=== PATIENT | female | born 2000 | race Hispanic/Latino ===

== ENCOUNTER 2023-05-16 18:26 | Inpatient (IN) | payer OTHER ==
[~2023-05-16 18:26] MED LIST: Bupivacaine 0.25% HCL 30 ML VIAL ONE; Lidocaine 2% MPF 10 ML AMP (For Epidural Use) ONE; ePHEDrine Sulfate 50 MG/10 ML VIAL ONE
[2023-05-16 18:59] VITALS: BMI 28.5
[2023-05-16] MEDS ORDERED: hydrALAZINE 20 MG/ML VIAL SLOW IVP PRN ×2 (19:20→21:22)
[2023-05-16] MEDS ORDERED: Fluconazole 100 MG TAB PO SCH ×2 (20:15→20:30)
[2023-05-16] MEDS ORDERED: Fluconazole 100 MG TAB PO ONE (20:15)
[2023-05-16 20:34] LABS: Fetal Membranes Rupture RUPTURE DETECTED (No Rupture)
[2023-05-16] MEDS ORDERED: Methylergonovine 0.2 MG/ML VIAL IM PRN (21:22)
[2023-05-16] MEDS ORDERED: Misoprostol 200 MCG TAB PR PRN (21:22)
[2023-05-16] MEDS ORDERED: Promethazine HCl 25 MG/ML VIAL IM PRN (21:22)
[2023-05-16] MEDS ORDERED: Carboprost 250 MCG/ML AMP IM PRN (21:22)
[2023-05-16] MEDS ORDERED: Diphenoxylate HCl/Atropine Tablet PO PRN (21:22)
[2023-05-16] MEDS ORDERED: Tranexamic Acid 1,000 MG/10 ML VIAL IVP PRN (21:22)
[2023-05-16] MEDS ORDERED: Ondansetron PF 4 MG/2 ML Vial IVP PRN (21:22)
[2023-05-16] MEDS ORDERED: Lidocaine 1% (PF) 30 ML VIAL SC PRN (21:22)
[2023-05-16] MEDS ORDERED: Penicillin G Potassium 5 MILL.UNITS in Sodium Chloride 0.9% 100 ML IVPB SCH (21:30)
[2023-05-16] MEDS ORDERED: Oxytocin 30 units/NS 500 ML 500 ML IV SCH ×2 (21:30)
[2023-05-16 21:57] LABS: Hematocrit 38.7 % (34.9-44.5); Mean Corpuscular HGB CONC 33.6 g/dL (32.0-36.0); Mean Corpuscular Hemoglobin 29.5 pg (27.0-33.0); Mean Platelet Volume 12.4 fl (7.4-10.4); Platelet Count 168 10x3/uL (150-450); RBC Distribution Width 13.8 % (11.5-14.5); White Blood Cell (WBC) Count 11.1 10x3/uL (3.5-10.5)
[2023-05-16 22:26] LABS: HBSAg Index 0.12 S/CO (0-0.99); Hep B Surf Ag - L&D Non-Reactive S/CO (NonReactive)
[2023-05-16 22:27] LABS: Syphilis Antibody Nonreactive (Nonreactive); Syphilis Antibody Index 0.03 S/CO (<1.00 Non-Reactive)
[2023-05-16] MEDS ORDERED: fentaNYL/Ropivacaine Epidural 100 ML ONE (23:30)
[2023-05-17] MEDS ORDERED: Moisturizing Cream (Eucerin) 113 GM JAR TOP PRN ×2 (00:08→16:26)
[2023-05-17] MEDS ORDERED: Ondansetron PF 4 MG/2 ML Vial IVP PRN ×5 (00:08→23:28)
[2023-05-17] MEDS ORDERED: Naloxone HCl 0.4 mg/ml Vial IVP PRN ×4 (00:08→16:26)
[2023-05-17] MEDS ORDERED: ePHEDrine Sulfate 50 MG/10 ML VIAL SLOW IVP PRN (00:08)
[2023-05-17] MEDS ORDERED: diphenhydrAMINE 50 MG/ML VIAL IVP PRN ×3 (00:08→16:26)
[2023-05-17] MEDS ORDERED: Promethazine HCl 25 MG/ML VIAL IM PRN ×4 (00:08→23:28)
[2023-05-17] MEDS ORDERED: Lactated Ringer's 500 ML IV PRN (00:08)
[2023-05-17] MEDS ORDERED: Acetaminophen 325 MG TAB PO PRN ×2 (00:08→23:28)
[2023-05-17] MEDS ORDERED: fentaNYL 2 mcg/Ropivacaine 0.2% Epidural 100 ML CADD EPIDURAL SCH (00:15)
[2023-05-17] MEDS ORDERED: Communication Order-Pharmacy FS SCH ×3 (00:15→16:30)
[2023-05-17] MEDS ORDERED: Penicillin G 2.5 MILL.units 2.5 MILL.UNITS in Premix 1 BAG IVPB SCH (01:30)
[2023-05-17 09:40] LABS: Chlamydia by PCR, Vaginal Swab Not Detected (NotDetected); GC by PCR, Vaginal Swab Not Detected (NotDetected)
[2023-05-17] MEDS ORDERED: Bicitra 30 ML UDCUP PO PRN (13:51)
[2023-05-17] MEDS ORDERED: Famotidine/PF 20 mg/2ml Vial SLOW IVP PRN (13:51)
[2023-05-17] MEDS ORDERED: Azithromycin 500 MG in Sodium Chloride 0.9% 250 ML 250 ML IVPB SCH (14:00)
[2023-05-17] MEDS ORDERED: CEFAZOLIN 2 GM in Sodium Chloride 0.9% 100 ML IVPB SCH (14:00)
[2023-05-17] MEDS ORDERED: Morphine PF 10 MG/10 ML VIAL ONE (14:19)
[2023-05-17] MEDS ORDERED: Dexamethasone 4 mg/ml Vial ONE (14:19)
[2023-05-17] MEDS ORDERED: Ondansetron PF 4 MG/2 ML Vial ONE (14:19)
[2023-05-17] MEDS ORDERED: Oxytocin 10 UNITS/ML VIAL ONE (14:19)
[2023-05-17] MEDS ORDERED: PHENYLEPHRINE-NS 100 MCG/ML 10 ML SYRINGE ONE ×2 (14:27→15:01)
[2023-05-17] MEDS ORDERED: KETAMINE 100 MG/ML (5ML VIAL) ONE (14:54)
[2023-05-17] MEDS ORDERED: Midazolam HCl 2 mg/2 ml Vial ONE (14:54)
[2023-05-17] MEDS ORDERED: Tranexamic Acid 1,000 MG/10 ML VIAL ONE (14:56)
[2023-05-17] MEDS ORDERED: Methylergonovine 0.2 MG/ML VIAL ONE (15:01)
[2023-05-17 15:07] LABS: RapidComm Collect By OR NURSE; pH (Cord, venous) 7.329 (7.250-7.350)
[2023-05-17 15:08] LABS: RapidComm Collect By OR NURSE
[2023-05-17] MEDS ORDERED: GENTAMICIN IVPB SCH (16:15)
[2023-05-17] MEDS ORDERED: SODIUM CHLORIDE 0.9% IVPB SCH (16:15)
[2023-05-17] MEDS ORDERED: Meperidine HCl/PF 25 MG/ML VIAL SLOW IVP PRN (16:26)
[2023-05-17] MEDS ORDERED: FENTANYL 500 MCG/10 ML VIAL 1,000 MCG in Sodium Chloride 0.9% 30 ML IV PRN (16:26)
[2023-05-17] MEDS ORDERED: Morphine 4 MG/ML VIAL SLOW IVP PRN (16:26)
[2023-05-17] MEDS ORDERED: fentaNYL 50 mcg/mL 1 mL Vial SLOW IVP PRN (16:26)
[2023-05-17] MEDS ORDERED: Promethazine HCl 25 MG SUPP PR PRN (16:26)
[2023-05-17] MEDS ORDERED: Naloxone HCl 0.4 mg/ml Vial IV PRN ×2 (16:26)
[2023-05-17] MEDS ORDERED: diphenhydrAMINE 50 MG/ML VIAL IM PRN (16:26)
[2023-05-17] MEDS ORDERED: diphenhydrAMINE 25 MG CAP PO PRN (16:26)
[2023-05-17] MEDS ORDERED: Ketorolac Tromethamine 30 MG/ML VIAL IVP SCH (16:30)
[2023-05-17 16:42] LABS: D-Dimer Test 3.37 mg/L FEU (0.19-0.50); INR-International Normal Ratio 4.6; PTT 84.8 sec (22.0-33.0); Prothrombin Time 47.9 sec (9.5-12.1)
[2023-05-17 17:05] LABS: Hematocrit 38.1 % (34.9-44.5); Hemoglobin 12.9 g/dL (12.0-15.5)
[2023-05-17] MEDS: Gentamicin Sulfate 320 MG in Sodium Chloride 0.9% 100 ML IVPB SCH (18:25)
[2023-05-17] MEDS: Ampicillin 2 GM in Sodium Chloride 0.9% 100 ML IVPB SCH (18:25)
[2023-05-17 20:33] LABS: #Neutrophils 19.1 10x3/uL (1.5-8.4); %Basophils 0.1 % (0.0-2.0); %Eosinophils 0.1 % (0.0-6.0); %Monocytes 4.9 % (0.0-10.0); %Neutrophils 90.3 % (40.0-75.0); Hematocrit 33.3 % (34.9-44.5); Hemoglobin 11.4 g/dL (12.0-15.5); Mean Corpuscular HGB CONC 34.2 g/dL (32.0-36.0); Mean Corpuscular Hemoglobin 30.7 pg (27.0-33.0); Mean Corpuscular Volume 89.8 fl (81.6-98.3); Mean Platelet Volume 12.4 fl (7.4-10.4); Platelet Count 139 10x3/uL (150-450); RBC Distribution Width 13.7 % (11.5-14.5); Red Blood Cell (RBC) Count 3.71 10x6/uL (3.90-5.03); White Blood Cell (WBC) Count 21.1 10x3/uL (3.5-10.5)
[2023-05-17 20:51] LABS: D-Dimer Test 2.62 mg/L FEU (0.19-0.50); INR-International Normal Ratio 0.9; PTT 32.5 sec (22.0-33.0); Prothrombin Time 9.8 sec (9.5-12.1)
[2023-05-17 21:01] LABS: ALT (SGPT) 10 U/L (8-55); AST (SGOT) 17 U/L (5-34); Albumin 2.9 g/dL (3.5-5.0); Alkaline Phosphatase 177 U/L (40-100); Anion Gap 13 mmol/L (10-20); BUN (Urea Nitrogen) 6 mg/dL (7.0-18.7); Bilirubin, Total 1.9 mg/dL (0.2-1.2); CRP (Inflammatory) 6.98 mg/dL (= or < 0.5); Calc. Creatinine Clearance 151 mL/min (70-130); Calcium 8.7 mg/dL (7.8-10.44); Carbon Dioxide 20 mmol/L (22-29); Chloride 110 mmol/L (98-107); Estimated GFR 132; Globulin 2.5 g/dL (2.4-3.5); Glucose 111 mg/dL (70-105); Potassium 4.2 mmol/L (3.5-5.1); Protein, Total 5.4 g/dL (6.0-8.3); Sodium 139 mmol/L (136-145)
[2023-05-17] MEDS: Clindamycin/D5W 900 MG in Premix 1 BAG IVPB SCH (22:26)
[2023-05-17] MEDS ORDERED: Bisacodyl 10 MG SUPP PR PRN (23:28)
[2023-05-17] MEDS ORDERED: Misoprostol 200 MCG TAB PR PRN (23:28)
[2023-05-17] MEDS ORDERED: hydrALAZINE 20 MG/ML VIAL SLOW IVP PRN (23:28)
[2023-05-17] MEDS ORDERED: Lanolin Ointment 7 GM TUBE TOP PRN (23:28)
[2023-05-17] MEDS ORDERED: Ferrous Sulfate 325 MG TAB PO SCH (23:45)
[2023-05-17] MEDS ORDERED: Docusate 100 MG CAP PO SCH (23:45)
[2023-05-18] MEDS: Ampicillin 2 GM in Sodium Chloride 0.9% 100 ML IVPB SCH ×4 (00:25→18:49)
[2023-05-18] MEDS: Ketorolac Tromethamine 30 MG/ML VIAL IVP PRN ×2 (00:26→06:10)
[2023-05-18] MEDS ORDERED: HYDROcodone/Acetaminophen 5/325 mg Tablet PO PRN (04:30)
[2023-05-18] MEDS: Clindamycin/D5W 900 MG in Premix 1 BAG IVPB SCH ×3 (06:10→21:36)
[2023-05-18 06:49] LABS: #Basophils 0.1 10x3/uL (0.0-0.2); #Eosinphils 0.1 10x3/uL (0.0-0.5); #Monocytes 1.4 10x3/uL (0.0-1.1); #Neutrophils 13.6 10x3/uL (1.5-8.4); %Basophils 0.3 % (0.0-2.0); %Eosinophils 0.3 % (0.0-6.0); %Lymphocytes 7.1 % (18.0-47.0); %Monocytes 8.7 % (0.0-10.0); Hematocrit 26.2 % (34.9-44.5); Hemoglobin 8.9 g/dL (12.0-15.5); Mean Corpuscular Hemoglobin 30.4 pg (27.0-33.0); Mean Corpuscular Volume 89.4 fl (81.6-98.3); Mean Platelet Volume 12.4 fl (7.4-10.4); Platelet Count 126 10x3/uL (150-450); RBC Distribution Width 13.7 % (11.5-14.5); Red Blood Cell (RBC) Count 2.93 10x6/uL (3.90-5.03); White Blood Cell (WBC) Count 15.9 10x3/uL (3.5-10.5)
[2023-05-18 09:06] LABS: Anion Gap 10 mmol/L (10-20); BUN (Urea Nitrogen) 7 mg/dL (7.0-18.7); Calc. Creatinine Clearance 144 mL/min (70-130); Calcium 8.2 mg/dL (7.8-10.44); Carbon Dioxide 24 mmol/L (22-29); Chloride 106 mmol/L (98-107); Estimated GFR 130; Glucose 104 mg/dL (70-105); Potassium 3.9 mmol/L (3.5-5.1); Sodium 136 mmol/L (136-145)
[2023-05-18 09:10] LABS: D-Dimer Test 1.82 mg/L FEU (0.19-0.50); INR-International Normal Ratio 0.9; PTT 33.6 sec (22.0-33.0); Prothrombin Time 10.1 sec (9.5-12.1)
[2023-05-18] MEDS: Prenatal Vitamin 1 TAB PO SCH (10:01)
[2023-05-18] MEDS: Ferrous Sulfate 325 MG TAB PO SCH ×2 (10:01→20:03)
[2023-05-18] MEDS: Docusate 100 MG CAP PO SCH ×2 (10:01→20:03)
[2023-05-18] MEDS: Polyethylene Glycol 3350 17 GM Packet PO SCH (10:02)
[2023-05-18] MEDS: Simethicone Chewable 80 MG TAB PO PRN ×2 (10:02→15:34)
[2023-05-18 10:05] LABS: Tric.vaginalis PCR,Vaginal Sw Not Detected (NotDetected)
[2023-05-18] MEDS ORDERED: Iron Sucrose Complex 100 MG in Sodium Chloride 0.9% 100 ML IVPB SCH (10:15)
[2023-05-18] MEDS ORDERED: Iron, Sodium Ferric Gluconate 125 MG in Sodium Chloride 0.9% 100 ML IVPB SCH (13:30)
[2023-05-18] MEDS: Gentamicin Sulfate 320 MG in Sodium Chloride 0.9% 100 ML IVPB SCH (17:16)
[2023-05-18] MEDS: HYDROcodone/Acetaminophen 5/325 mg Tablet PO PRN (20:03)
[2023-05-18] MEDS: Ibuprofen 800 MG TAB PO SCH (21:37)
[2023-05-19] MEDS: HYDROcodone/Acetaminophen 5/325 mg Tablet PO PRN ×2 (00:11→05:42)
[2023-05-19] MEDS: Ampicillin 2 GM in Sodium Chloride 0.9% 100 ML IVPB SCH ×3 (00:11→11:44)
[2023-05-19 04:25] LABS: #Basophils 0.1 10x3/uL (0.0-0.2); #Eosinphils 0.1 10x3/uL (0.0-0.5); #Neutrophils 9.5 10x3/uL (1.5-8.4); %Basophils 0.4 % (0.0-2.0); %Eosinophils 0.6 % (0.0-6.0); %Monocytes 8.1 % (0.0-10.0); %Neutrophils 77.4 % (40.0-75.0); Hematocrit 25.6 % (34.9-44.5); Hemoglobin 8.6 g/dL (12.0-15.5); Mean Corpuscular HGB CONC 33.6 g/dL (32.0-36.0); Mean Corpuscular Hemoglobin 30.4 pg (27.0-33.0); Mean Corpuscular Volume 90.5 fl (81.6-98.3); Mean Platelet Volume 11.6 fl (7.4-10.4); Platelet Count 143 10x3/uL (150-450); RBC Distribution Width 14.3 % (11.5-14.5); Red Blood Cell (RBC) Count 2.83 10x6/uL (3.90-5.03); White Blood Cell (WBC) Count 12.3 10x3/uL (3.5-10.5)
[2023-05-19] MEDS: Ibuprofen 800 MG TAB PO SCH ×3 (05:42→22:00)
[2023-05-19] MEDS: Clindamycin/D5W 900 MG in Premix 1 BAG IVPB SCH ×2 (05:42→14:34)
[2023-05-19] MEDS: Prenatal Vitamin 1 TAB PO SCH (09:19)
[2023-05-19] MEDS: Ferrous Sulfate 325 MG TAB PO SCH ×2 (09:19→22:00)
[2023-05-19] MEDS: Polyethylene Glycol 3350 17 GM Packet PO SCH (09:19)
[2023-05-19] MEDS: Docusate 100 MG CAP PO SCH (09:19)
[2023-05-19] MEDS ORDERED: oxyCODONE 5 MG TAB PO PRN (09:42)
[2023-05-19] MEDS ORDERED: Senokot 8.6 MG TAB PO PRN (11:33)
[2023-05-19] MEDS: Acetaminophen 500 MG TAB PO SCH ×2 (11:45→18:27)
[2023-05-20] MEDS: Acetaminophen 500 MG TAB PO SCH ×2 (03:36→07:06)
[2023-05-20] MEDS: Ibuprofen 800 MG TAB PO SCH (05:20)
[2023-05-20 07:51] VITALS: BP 115/71; TEMP 98.7
[2023-05-20] MEDS: Ferrous Sulfate 325 MG TAB PO SCH (08:52)
[2023-05-20] MEDS: Polyethylene Glycol 3350 17 GM Packet PO SCH (08:52)
[2023-05-20] MEDS: Prenatal Vitamin 1 TAB PO SCH (08:52)
== END 2023-05-20 12:30 | disposition home or self-care (01) | DRG 786 ==
LOC: CSHLD/OP 18:26 → CSHLD 20:36 → CSHPP 05-17 23:00
PROVIDERS: ADMIT Student in an Organized Health Care Education/Training Program; ATTEND Student in an Organized Health Care Education/Training Program
PROC: 10D00Z1 Extraction of Products of Conception, Low, Open Approach (ICD-10-PCS; principal; 2023-05-16)
PROC: 3E033VJ Introduction of Other Hormone into Peripheral Vein, Percutaneous Approach (ICD-10-PCS; 2023-05-16)
PROC: 30233L1 Transfusion of Nonautologous Fresh Plasma into Peripheral Vein, Percutaneous Approach (ICD-10-PCS; 2023-05-17)
PROC: 30233N1 Transfusion of Nonautologous Red Blood Cells into Peripheral Vein, Percutaneous Approach (ICD-10-PCS; 2023-05-17)
PROC: 30233K1 Transfusion of Nonautologous Frozen Plasma into Peripheral Vein, Percutaneous Approach (ICD-10-PCS; 2023-05-17)
PROC: 4A133R1 Monitoring of Arterial Saturation, Peripheral, Percutaneous Approach (ICD-10-PCS; 2023-05-17)
DX: O42.02 Full-term premature rupture of membranes, onset of labor within 24 hours of rupture (principal); O41.1230 Chorioamnionitis, third trimester, not applicable or unspecified; O75.3 Other infection during labor; O72.1 Other immediate postpartum hemorrhage; D62 Acute posthemorrhagic anemia; Z37.0 Single live birth; Z3A.37 37 weeks gestation of pregnancy; O62.1 Secondary uterine inertia; O72.3 Postpartum coagulation defects
CPT/HCPCS: 36415; 36430; 51702; 80048; 80053; 82805; 84112; 85014; 85018; 85025; 85027; 85049; 85300; 85362; 85379; 85384; 85610; 85730; 86140; 86780; 86850; 86900; 86901; 87040; 87340; 87480; 87491; 87510; 87591; 87660; 87661; 99285; J0290; J0456; J1100; J1580; J1885; J2210; J2250; J2274; J2405; J2590; J2916; J3490; J7050; P9016; P9059; S0020; S0028